=== PATIENT | female | born 1955 | race Caucasian/White ===

== ENCOUNTER → 2016-12-30 | Outpatient (CLI) | payer BC ==
--- NOTE | 2016-12-30 17:28 | REP ---
LEFT HIP, TWO VIEWS: HISTORY: Pain. There is no acute fracture or dislocation. The joint space is normal in appearance. IMPRESSION: There is no acute fracture or dislocation. Unreviewed
== END ==
LOC: M RAD 15:32
PROVIDERS: ATTEND Nurse Practitioner Family
DX: M25.552 Pain in left hip (principal)

== ENCOUNTER → 2017-04-05 | Outpatient (REF) | payer BC | LOC: M LAB REF 13:22 | PROVIDERS: ATTEND Surgery | DX: D48.5 Neoplasm of uncertain behavior of skin (principal) ==

== ENCOUNTER → 2017-06-26 | Outpatient (REF) | payer BC ==
[2017-06-26 12:38] LABS: ALBUMIN 3.5 GM/DL (3.2-5.2); ALBUMIN/GLOBULIN RATIO 1.06 (1.00-1.93); ALKALINE PHOSPHATASE 64 U/L (45-117); ALT/SGPT 18 U/L (12-78); ANION GAP 8 MEQ/L (8-16); AST/SGOT 17 U/L (7-37); BILIRUBIN,TOTAL 0.6 MG/DL (0.2-1.0); BLOOD UREA NITROGEN 14 MG/DL (7-18); CALCIUM LEVEL 8.4 MG/DL (8.5-10.1); CARBON DIOXIDE LEVEL 28 MEQ/L (21-32); CHLORIDE LEVEL 107 MEQ/L (98-107); CREATININE FOR GFR 0.71 MG/DL (0.55-1.02); GLOMERULAR FILTRATION RATE > 60.0 (>51); GLUCOSE, FASTING 93 MG/DL (70-105); POTASSIUM SERUM 4.4 MEQ/L (3.5-5.1); SODIUM LEVEL 143 MEQ/L (136-145); TOTAL PROTEIN 6.8 GM/DL (6.4-8.2)
== END ==
LOC: M SFHCPLAZ 09:19
PROVIDERS: ATTEND Internal Medicine
DX: Z00.00 Encounter for general adult medical examination without abnormal findings (principal)

== ENCOUNTER → 2017-06-28 | Outpatient (CLI) | payer BC ==
--- NOTE | 2017-06-28 15:10 | REP ---
PELVIS ULTRASOUND: Real-time sonographic evaluation of the pelvis performed utilizing transabdominal and endovaginal technique. Bladder measures 11.7 x 7.6 x 9.4 cm. Uterus measures 4.4 x 2.7 x 3.2 cm. Endometrial thickness is normal at 3 mm. There is no endometrial fluid collection. Tiny echogenic focus adjacent to the endometrial stripe in the region of the fundus may represent a small calcification. This measures 2 mm in diameter. Ovaries appear normal in size and echotexture, right ovary measuring 2.3 x 1.1 x 1.7 cm and left ovary 2.3 x 1.5 x 2.0 cm. IMPRESSION: Essentially negative pelvic ultrasound. Signed by Tavon Rivas MD 06/29/2017 09:15 A
== END ==
LOC: M RAD 12:47
PROVIDERS: ATTEND Advanced Practice Midwife
DX: R10.9 Unspecified abdominal pain (principal)

== ENCOUNTER → 2017-07-06 | Outpatient (CLI) | payer BC ==
--- NOTE | 2017-07-06 10:53 | REP ---
Right upper quadrant sonography: History: Diarrhea. Findings: Scanning through right upper quadrant of the abdomen demonstrates a normal sized thin-walled gallbladder with multiple non-shadowing 2-3 mm polyps near the neck of the gallbladder. No pericholecystic fluid is seen. No gallstone or sludge seen. Common bile duct is normal measuring 0.2 cm in greatest diameter. No focal liver lesion is seen. Pancreas is unremarkable. There is no evidence of ascites. The right kidney measures 9.7 x 5.1 x 3.1 cm. No significant right renal abnormality. Impression: Tiny gallbladder wall polyps. Otherwise negative right upper quadrant sonography. Signed by Perico Davis MD 07/06/2017 03:55 P
== END ==
LOC: M RAD 07:45
PROVIDERS: ATTEND Internal Medicine
DX: R19.7 Diarrhea, unspecified (principal); K82.4 Cholesterolosis of gallbladder

== ENCOUNTER → 2018-06-27 | Outpatient (REF) | payer BC ==
[2018-06-27 12:02] LABS: HEMATOCRIT 40.1 % (36.0-47.0); MEAN CORPUSCULAR HEMOGLOBIN 31.7 pg (27.0-33.0); MEAN CORPUSCULAR HGB CONC 32.4 g/dl (32.0-36.5); MEAN CORPUSCULAR VOLUME 97.8 fl (80.0-96.0); PLATELET COUNT, AUTOMATED 367 10^3/uL (150-450); RED CELL DISTRIBUTION WIDTH 12.6 % (11.5-14.5); WHITE BLOOD COUNT 5.9 10^3/uL (4.0-10.0)
[2018-06-27 13:08] LABS: ALBUMIN 3.2 GM/DL (3.2-5.2); ALBUMIN/GLOBULIN RATIO 0.97 (1.00-1.93); ALKALINE PHOSPHATASE 68 U/L (45-117); ALT/SGPT 16 U/L (12-78); ANION GAP 8 MEQ/L (8-16); AST/SGOT 16 U/L (7-37); BILIRUBIN,TOTAL 0.7 MG/DL (0.2-1.0); BLOOD UREA NITROGEN 14 MG/DL (7-18); CALCIUM LEVEL 8.1 MG/DL (8.8-10.2); CARBON DIOXIDE LEVEL 27 MEQ/L (21-32); CHLORIDE LEVEL 107 MEQ/L (98-107); CHOLESTEROL LEVEL 177 MG/DL (<200); CHOLESTEROL RISK RATIO 2.458 (<5); CREATININE FOR GFR 0.75 MG/DL (0.55-1.30); GLOMERULAR FILTRATION RATE > 60.0 (>45); GLUCOSE, FASTING 91 MG/DL (70-100); HDL CHOLESTEROL 72 MG/DL (>40); LDL CHOLESTEROL 92 MG/DL (<100); NON-HDL-C 105 MG/DL; POTASSIUM SERUM 3.9 MEQ/L (3.5-5.1); SODIUM LEVEL 142 MEQ/L (136-145); TOTAL PROTEIN 6.5 GM/DL (6.4-8.2); TRIGLYCERIDES LEVEL 63 MG/DL (<150)
== END ==
LOC: M SFHCPLAZ 07:55
DX: Z00.00 Encounter for general adult medical examination without abnormal findings (principal); R19.7 Diarrhea, unspecified; E03.9 Hypothyroidism, unspecified
CPT/HCPCS: 84443

== ENCOUNTER → 2018-07-04 | Outpatient (REF) | payer BC | LOC: M SFHCPLAZ 09:07 | PROVIDERS: ATTEND Internal Medicine | DX: R51 Headache (principal) ==

== ENCOUNTER → 2018-10-08 | Outpatient (REF) | payer BC ==
[2018-10-08 18:26] LABS: APPEARANCE, URINE HAZY (CLEAR); BACTERIA, URINE AUTO 1+ (NEGATIVE); BILIRUBIN, URINE AUTO NEGATIVE (NEGATIVE); BLOOD, URINE BLOOD 1+ (NEGATIVE); COLOR, URINE YELLOW (YELLOW); GLUCOSE, URINE (UA) AUTO NEGATIVE (NEGATIVE); KETONE, URINE AUTO NEGATIVE (NEGATIVE); LEUKOCYTE ESTERASE, URINE AUTO 3+ (NEGATIVE); MUCUS, URINE SMALL (NEGATIVE); NITRITE, URINE AUTO NEGATIVE (NEGATIVE); PROTEIN, URINE AUTO NEGATIVE (NEGATIVE); RBC, URINE AUTO 11 /HPF (0-3); SPECIFIC GRAVITY URINE AUTO 1.018 (1.002-1.035); SQUAMOUS EPITHELIAL CELL UR AU 0 /HPF (0-6); UROBILINOGEN, URINE AUTO 0.2 mg/dL (0.0-2.0); WBC, URINE AUTO 141 /HPF (0-3)
== END ==
LOC: M LAB REF 16:51
PROVIDERS: ATTEND Physician Assistant Medical
DX: N39.0 Urinary tract infection, site not specified (principal)

== ENCOUNTER → 2018-12-17 | Outpatient (REF) | payer BC ==
[2018-12-17 20:21] LABS: C REACTIVE PROTEIN QUANTITATIV < 0.30 MG/DL (0.00-0.30); RHEUMATOID FACTOR QUANT < 10.0 IU/ML (<15.0); URIC ACID 2.8 MG/DL (2.6-6.0)
== END ==
LOC: M SFHCPLAZ 16:13
PROVIDERS: ATTEND Nurse Practitioner Adult Health
DX: M25.40 Effusion, unspecified joint (principal)

== ENCOUNTER → 2018-12-18 | Outpatient (CLI) | payer BC ==
--- NOTE | 2018-12-19 01:24 | REP ---
Clinical: Wrist pain. Technique: AP, lateral views of the right and left wrist. Findings: No acute fracture or dislocation. No overt osteoarthritic degenerative changes are appreciated. Carpal bones as well as the visualized proximal metacarpal bones and distal radius and ulna are normal and age-appropriate in appearance. No acute fracture dislocation. Impression: Relatively symmetric age-appropriate examination. Electronically Signed by Samuel Hirsch MD 12/19/2018 01:16 A
--- NOTE | 2018-12-19 01:42 | REP ---
Clinical: Right hand pain. Technique: AP, lateral views of the right and left hand. Findings: Right hand demonstrates early advanced osteoarthritic degenerative changes primarily involving the interphalangeal joints. Findings include periarticular sclerosis, joint space narrowing, and osteophytosis. Findings most pronounced at the distal interphalangeal joints as well as the fifth proximal interphalangeal joint. Left hand demonstrates moderate osteoarthritic degenerative changes primarily involving the interphalangeal joints. Findings include periarticular sclerosis, joint space narrowing, and scattered osteophytosis. Findings most pronounced at third proximal interphalangeal joint as well as the second distal and proximal interphalangeal joints. Impression: Moderate/early advanced osteoarthritic degenerative changes. Electronically Signed by Samuel Hirsch MD 12/19/2018 01:34 A
== END ==
LOC: M RAD 13:59
PROVIDERS: ATTEND Nurse Practitioner Adult Health
DX: M79.641 Pain in right hand (principal); M19.041 Primary osteoarthritis, right hand; M19.042 Primary osteoarthritis, left hand

== ENCOUNTER → 2019-06-28 | Outpatient (REF) | payer BC ==
[2019-06-28 10:53] LABS: HEMATOCRIT 42.4 % (36.0-47.0); HEMOGLOBIN 13.1 g/dl (12.0-15.5); MEAN CORPUSCULAR HEMOGLOBIN 30.8 pg (27.0-33.0); MEAN CORPUSCULAR HGB CONC 30.9 g/dl (32.0-36.5); MEAN CORPUSCULAR VOLUME 99.8 fl (80.0-96.0); PLATELET COUNT, AUTOMATED 413 10^3/uL (150-450); RED BLOOD COUNT 4.25 10^6/uL (4.00-5.40); WHITE BLOOD COUNT 6.2 10^3/uL (4.0-10.0)
[2019-06-28 11:10] LABS: ALBUMIN 3.5 GM/DL (3.2-5.2); ALT/SGPT 15 U/L (12-78); BILIRUBIN,TOTAL 0.4 MG/DL (0.2-1.0); BLOOD UREA NITROGEN 13 MG/DL (7-18); CALCIUM LEVEL 8.6 MG/DL (8.8-10.2); CARBON DIOXIDE LEVEL 29 MEQ/L (21-32); CHLORIDE LEVEL 107 MEQ/L (98-107); CHOLESTEROL LEVEL 191 MG/DL (<200); CHOLESTEROL RISK RATIO 2.581 (<5); GLOMERULAR FILTRATION RATE > 60.0 (>45); GLUCOSE, FASTING 89 MG/DL (70-100); HDL CHOLESTEROL 74 MG/DL (>40); LDL CHOLESTEROL 97 MG/DL (<100); NON-HDL-C 117 MG/DL; POTASSIUM SERUM 4.1 MEQ/L (3.5-5.1); SODIUM LEVEL 144 MEQ/L (136-145); TOTAL PROTEIN 6.9 GM/DL (6.4-8.2); TRIGLYCERIDES LEVEL 100 MG/DL (<150)
== END ==
LOC: M SFHCPLAZ 08:15
PROVIDERS: ATTEND Internal Medicine
DX: Z00.00 Encounter for general adult medical examination without abnormal findings (principal); E03.9 Hypothyroidism, unspecified

== ENCOUNTER → 2019-07-05 | Outpatient (REF) | payer BC | LOC: M SFHCPLAZ 10:06 | PROVIDERS: ATTEND Internal Medicine | DX: M19.049 Primary osteoarthritis, unspecified hand (principal) ==

== ENCOUNTER 2019-11-15 10:00 | Emergency (ER) | payer BC ==
[~2019-11-15] VITALS: Ht 160 cm; Wt 69.4 kg
[2019-11-15] MEDS ORDERED: MICR1TAB5 PO (10:34)
[2019-11-15] MEDS ORDERED: LEVO75TA4 PO (10:34)
[2019-11-15 10:42] LABS: BASO % 0.5 % (0.0-1.0); EOS # 0.2 10^3/uL (0.0-0.5); EOS % 3.8 % (0.0-3.0); HEMOGLOBIN 13.5 g/dl (12.0-15.5); LYMPH # 1.6 10^3/uL (1.5-5.0); LYMPH % 28.2 % (24.0-44.0); MEAN CORPUSCULAR HGB CONC 32.1 g/dl (32.0-36.5); MEAN CORPUSCULAR VOLUME 96.6 fl (80.0-96.0); MONO # 0.4 10^3/uL (0.0-0.8); MONO % 7.6 % (0.0-5.0); NEUTROPHILS # 3.3 10^3/uL (1.5-8.5); NEUTROPHILS % 59.5 % (36.0-66.0); PLATELET COUNT, AUTOMATED 380 10^3/uL (150-450); RED BLOOD COUNT 4.35 10^6/uL (4.00-5.40); WHITE BLOOD COUNT 5.5 10^3/uL (4.0-10.0)
[2019-11-15 10:53] LABS: INR 1.01; PARTIAL THROMBOPLASTIN TIME 27.5 SECONDS (25.0-38.4)
[2019-11-15 11:10] LABS: ALBUMIN 3.6 GM/DL (3.2-5.2); ALT/SGPT 18 U/L (12-78); BILIRUBIN,DIRECT 0.1 MG/DL (0.0-0.2); BILIRUBIN,TOTAL 0.6 MG/DL (0.2-1.0); BLOOD UREA NITROGEN 11 MG/DL (7-18); CALCIUM LEVEL 8.8 MG/DL (8.8-10.2); CARBON DIOXIDE LEVEL 25 MEQ/L (21-32); CHLORIDE LEVEL 108 MEQ/L (98-107); CK-MB VALUE MASS < 1.0 NG/ML (<3.6); CPK CREATINE PHOSPHOKINASE 55 U/L (26-192); CREATININE FOR GFR 0.67 MG/DL (0.55-1.30); FREE T4 1.27 NG/DL (0.76-1.46); GLOMERULAR FILTRATION RATE > 60.0 (>45); GLUCOSE, FASTING 104 MG/DL (70-100); LIPASE 79 U/L (73-393); MAGNESIUM LEVEL 2.2 MG/DL (1.8-2.4); MB/CK RELATIVE INDEX 1.82 (< OR =4); POTASSIUM SERUM 3.7 MEQ/L (3.5-5.1); SODIUM LEVEL 141 MEQ/L (136-145); TOTAL PROTEIN 7.1 GM/DL (6.4-8.2); TROPONIN I < 0.02 NG/ML (< 0.10)
[2019-11-15 11:11] LABS: D-DIMER QUANT 483.85 ng/ml (<500)
--- NOTE | 2019-11-15 11:20 | REP ---
CHEST, SINGLE VIEW: There is no evidence of acute infiltrate. No pleural effusion is seen. The heart is normal in size. The mediastinal silhouette is unremarkable. The visualized osseous structures are intact. IMPRESSION: No acute pulmonary disease. Electronically Signed by Tavon Rivas MD 11/15/2019 11:25 A
[2019-11-15] MEDS ORDERED: [UNRECOGNIZED DRUG - OTHER] (11:28)
[2019-11-15] MEDS ORDERED: holter monitor (11:28)
[2019-11-15 11:30] VITALS: BP 118/57
--- NOTE | 2019-11-15 22:51 | ECGEPIP ---
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
== END 2019-11-15 11:55 | disposition home or self-care (01) ==
LOC: M ED 10:00
DX: R00.2 Palpitations (principal); E07.9 Disorder of thyroid, unspecified; R09.89 Other specified symptoms and signs involving the circulatory and respiratory systems; Z82.49 Family history of ischemic heart disease and other diseases of the circulatory system; Z86.79 Personal history of other diseases of the circulatory system; Z79.899 Other long term (current) drug therapy

== ENCOUNTER → 2019-11-15 | Outpatient (CLI) | payer BC ==
[~2019-11-15] MED LIST: LEVO75TA4 PO; MICR1TAB5 PO; [UNRECOGNIZED DRUG - OTHER]; holter monitor
--- NOTE | 2019-11-17 15:11 | HOLTMON ---
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 There were very occasional PVC's and rare PAC's but no significant runs. No significant ST events or pauses. No atrial fibrillation was seen. Diary entries were associated with sinus rhythm, minor sinus tachycardia, and once with a PVC. Electronically Signed on 11-17-2019 15:11:44 EDT by Casey Duvall
== END ==
LOC: M EKG 11:53
PROVIDERS: ATTEND Emergency Medicine
DX: R00.2 Palpitations (principal)

== ENCOUNTER → 2019-12-25 | Outpatient (CLI) | payer BC | LOC: M PLALAB 12:17 | PROVIDERS: ATTEND Internal Medicine | DX: K52.9 Noninfective gastroenteritis and colitis, unspecified (principal) ==

== ENCOUNTER → 2020-03-31 | Outpatient (CLI) | payer BC | LOC: M PLALAB 13:33 | PROVIDERS: ATTEND Internal Medicine | DX: G50.1 Atypical facial pain (principal) ==

== ENCOUNTER → 2020-08-28 | Outpatient (REF) | payer BC ==
[2020-08-28 13:55] LABS: HEMATOCRIT 39.9 % (36.0-47.0); HEMOGLOBIN 12.5 g/dl (12.0-15.5); MEAN CORPUSCULAR HEMOGLOBIN 30.5 pg (27.0-33.0); MEAN CORPUSCULAR HGB CONC 31.3 g/dl (32.0-36.5); MEAN CORPUSCULAR VOLUME 97.3 fl (80.0-96.0); PLATELET COUNT, AUTOMATED 363 10^3/uL (150-450); WHITE BLOOD COUNT 4.8 10^3/uL (4.0-10.0)
[2020-08-28 14:46] LABS: ALBUMIN 3.6 GM/DL (3.2-5.2); ALT/SGPT 15 U/L (12-78); BILIRUBIN,TOTAL 0.3 MG/DL (0.2-1.0); BLOOD UREA NITROGEN 15 MG/DL (7-18); CALCIUM LEVEL 8.8 MG/DL (8.8-10.2); CARBON DIOXIDE LEVEL 28 MEQ/L (21-32); CHLORIDE LEVEL 106 MEQ/L (98-107); CHOLESTEROL LEVEL 161 MG/DL (<200); CHOLESTEROL RISK RATIO 3.156 (<5); CREATININE FOR GFR 0.69 MG/DL (0.55-1.30); GLOMERULAR FILTRATION RATE > 60.0 (>45); GLUCOSE, FASTING 88 MG/DL (70-100); HDL CHOLESTEROL 51 MG/DL (>40); LDL CHOLESTEROL 101 MG/DL (<100); NON-HDL-C 110 MG/DL; SODIUM LEVEL 141 MEQ/L (136-145); TOTAL PROTEIN 6.6 GM/DL (6.4-8.2); TRIGLYCERIDES LEVEL 44 MG/DL (<150)
== END ==
LOC: M PLALAB 10:32
PROVIDERS: ATTEND Internal Medicine
DX: E03.9 Hypothyroidism, unspecified (principal); R19.7 Diarrhea, unspecified

== ENCOUNTER → 2020-10-04 | Outpatient (CLI) | payer BC ==
[~2020-10-04] MED LIST changes: +COLE625TAB PO; +GABA-282 PO; +METO25TA4 PO; +OMEP40CA97 PO
== END ==
LOC: M LABSMTC 09:08
PROVIDERS: ATTEND Anesthesiology
DX: Z20.828 Contact with and (suspected) exposure to other viral communicable diseases (principal); Z11.59 Encounter for screening for other viral diseases

== ENCOUNTER → 2020-10-07 | Outpatient (REF) | payer BC | LOC: M SFHCWAGY 13:29 | PROVIDERS: ATTEND Advanced Practice Midwife | DX: Z12.4 Encounter for screening for malignant neoplasm of cervix (principal) ==

== ENCOUNTER 2020-10-09 13:22 | Day surgery (SDC) | payer BC ==
[~2020-10-09] VITALS: Ht 157.5 cm; Wt 66.7 kg
[~2020-10-09 13:22] MED LIST changes: +LIDOCAINE 2% 100MG/5ML SDV (FOR ANES.) As Ordered ONE; +NS 1,000 ML IV ONE; +propofoL 200 MG/20 ML VIAL As Ordered ONE
[2020-10-09] MEDS ORDERED: fentaNYL 100 MCG/2 ML INJECTION (J3010) As Ordered ONE (14:31)
--- NOTE | 2020-10-09 15:13 | ROOR ---
Patient Name: Jennifer Higuera Procedure Date: 10/09/2020 2:59 PM Date of : 1955 Age: 65 Room: [facility] Gender: Female Note Status: Finalized Procedure: Upper GI endoscopy Indications: Chronic cough Providers: Shady IQBAL MD Referring MD: Casey Duvall MD Requesting Provider: Medicines: Monitored Anesthesia Care Complications: No immediate complications. Procedure: Pre-Anesthesia Assessment: - The heart rate, respiratory rate, oxygen saturations, blood pressure, adequacy of pulmonary ventilation, and response to care were monitored throughout the procedure. The Endoscope was introduced through the mouth, and advanced to the second part of duodenum. The upper GI endoscopy was accomplished without difficulty. The patient tolerated the procedure well. Findings: The esophagus was normal. The stomach was normal. The examined duodenum was normal. Impression: - Normal esophagus. - Normal stomach. - Normal examined duodenum. - No specimens collected. Recommendation: - Follow an antireflux regimen. - Continue present medications. Procedure Code(s): --- Professional --- 19858, Esophagogastroduodenoscopy, flexible, transoral; diagnostic, including collection of specimen(s) by brushing or washing, when performed (separate procedure) Diagnosis Code(s): --- Professional --- R05, Cough CPT copyright 2019 [employer]. All rights reserved. The codes documented in this report are preliminary and upon public health engineer review may be revised to meet current compliance requirements. Shady Iqbal MD Shady IQBAL MD 10/09/2020 3:12:33 PM Electronically signed by Shady IQBAL MD Number of Addenda: 0 Note Initiated On: 10/09/2020 2:59 PM Estimated Blood Loss: Estimated blood loss: none.
[2020-10-09 15:40] VITALS: BP 121/59
== END 2020-10-09 15:55 | disposition home or self-care (01) ==
LOC: M OPP 13:22
PROVIDERS: ATTEND Internal Medicine Gastroenterology
DX: R05 Cough (principal); E03.9 Hypothyroidism, unspecified; K21.9 Gastro-esophageal reflux disease without esophagitis; I48.91 Unspecified atrial fibrillation; Z79.899 Other long term (current) drug therapy
CPT/HCPCS: 43235; J3010

== ENCOUNTER → 2021-09-08 | Outpatient (CLI) | payer BC ==
[~2021-09-08] MED LIST changes: -LIDOCAINE 2% 100MG/5ML SDV (FOR ANES.) As Ordered ONE; -NS 1,000 ML IV ONE; +OMEP40CA4 PO; -OMEP40CA97 PO; -propofoL 200 MG/20 ML VIAL As Ordered ONE
[2021-09-08 18:05] LABS: HEMATOCRIT 40.4 % (36.0-47.0); HEMOGLOBIN 12.9 g/dl (12.0-15.5); MEAN CORPUSCULAR HEMOGLOBIN 30.6 pg (27.0-33.0); MEAN CORPUSCULAR HGB CONC 31.9 g/dl (32.0-36.5); PLATELET COUNT, AUTOMATED 391 10^3/uL (150-450); RED BLOOD COUNT 4.21 10^6/uL (4.00-5.40); WHITE BLOOD COUNT 6.6 10^3/uL (4.0-10.0)
[2021-09-08 18:51] LABS: ERYTHROCYTE SEDIMENTATION RATE 10 mm/hr (0-30)
[2021-09-08 20:14] LABS: ALBUMIN 3.8 GM/DL (3.2-5.2); ALT/SGPT 17 U/L (12-78); BILIRUBIN,TOTAL 0.6 MG/DL (0.2-1.0); BLOOD UREA NITROGEN 12 MG/DL (7-18); CARBON DIOXIDE LEVEL 30 MEQ/L (21-32); CHLORIDE LEVEL 105 MEQ/L (98-107); CHOLESTEROL LEVEL 183 MG/DL (<200); CHOLESTEROL RISK RATIO 2.376 (<5); CREATININE FOR GFR 0.62 MG/DL (0.55-1.30); GLOMERULAR FILTRATION RATE > 60.0 (>45); GLUCOSE, FASTING 79 MG/DL (70-100); HDL CHOLESTEROL 77 MG/DL (>40); HEPATITIS C VIRUS ABY INDEX 0.1 INDEX (<0.8); LDL CHOLESTEROL 95 MG/DL (<100); NON-HDL-C 106 MG/DL; POTASSIUM SERUM 3.9 MEQ/L (3.5-5.1); SODIUM LEVEL 141 MEQ/L (136-145); TOTAL PROTEIN 7.1 GM/DL (6.4-8.2); TRIGLYCERIDES LEVEL 57 MG/DL (<150)
== END ==
LOC: M PLALAB 15:17
PROVIDERS: ATTEND Internal Medicine
DX: Z00.00 Encounter for general adult medical examination without abnormal findings (principal); M15.4 Erosive (osteo)arthritis; E03.9 Hypothyroidism, unspecified; Z11.59 Encounter for screening for other viral diseases

== ENCOUNTER → 2022-10-21 | Outpatient (CLI) | payer MEDICARE ==
[~2022-10-21] MED LIST changes: +COLE625T17 PO; -COLE625TAB PO
[2022-10-21 11:45] LABS: BASO % 0.7 % (0.0-1.0); EOS # 0.2 10^3/uL (0.0-0.5); EOS % 4.1 % (0.0-3.0); HEMATOCRIT 40.4 % (36.0-47.0); HEMOGLOBIN 13.1 g/dl (12.0-15.5); LYMPH # 2.1 10^3/uL (1.5-5.0); MEAN CORPUSCULAR HGB CONC 32.4 g/dl (32.0-36.5); MEAN CORPUSCULAR VOLUME 95.5 fl (80.0-96.0); MONO # 0.4 10^3/uL (0.0-0.8); MONO % 7.4 % (2.0-8.0); NEUTROPHILS % 51.6 % (36.0-66.0); PLATELET COUNT, AUTOMATED 382 10^3/uL (150-450); RED BLOOD COUNT 4.23 10^6/uL (4.00-5.40); WHITE BLOOD COUNT 5.8 10^3/uL (4.0-10.0)
[2022-10-21 12:00] LABS: HEMOGLOBIN A1c 5.2 % (4.0-6.0)
[2022-10-21 12:13] LABS: ALBUMIN 3.6 G/DL (3.2-5.2); ALKALINE PHOSPHATASE 65 U/L (46-116); ALT/SGPT 14 U/L (7.0-40); AST/SGOT 15 U/L (<34); BILIRUBIN,TOTAL 0.7 MG/DL (0.3-1.2); BLOOD UREA NITROGEN 20 MG/DL (9-23); CALCIUM LEVEL 8.6 MG/DL (8.3-10.6); CARBON DIOXIDE LEVEL 28 MMOL/L (20-31); CHLORIDE LEVEL 105 MMOL/L (98-107); CHOLESTEROL LEVEL 171 MG/DL (<200); CHOLESTEROL RISK RATIO 2.74 (<5); CREATININE FOR GFR 0.67 MG/DL (0.55-1.30); GLOMERULAR FILTRATION RATE > 60.0 (>45); GLUCOSE, FASTING 85 MG/DL (74-106); HDL CHOLESTEROL 62.2 MG/DL (>40); LDL CHOLESTEROL 97.8 MG/DL (<100); NON-HDL-C 108.8 MG/DL; SODIUM LEVEL 138 MMOL/L (136-145); TOTAL PROTEIN 6.5 G/DL (5.7-8.2); TRIGLYCERIDES LEVEL 55 MG/DL (<150)
[2022-10-21 12:15] LABS: THYROID STIMULATING HORMONE 0.737 uIU/ML (0.55-4.78)
== END ==
LOC: M PLALAB 08:10
PROVIDERS: ATTEND Physician Assistant
DX: E03.9 Hypothyroidism, unspecified (principal)

== ENCOUNTER → 2022-11-02 | Outpatient (CLI) | payer MEDICARE | LOC: M RAD 13:56 | PROVIDERS: ATTEND Physician Assistant Medical | DX: J32.9 Chronic sinusitis, unspecified (principal) ==

== ENCOUNTER → 2023-03-29 | Outpatient (CLI) | payer MEDICARE | LOC: M WHC 09:59 | PROVIDERS: ATTEND Physician Assistant | DX: M15.4 Erosive (osteo)arthritis (principal); Z13.820 Encounter for screening for osteoporosis; M85.89 Other specified disorders of bone density and structure, multiple sites ==

== ENCOUNTER → 2023-08-29 | Outpatient (CLI) | payer MEDICARE ==
[2023-08-29 16:00] LABS: C REACTIVE PROTEIN QUANTITATIV < 0.40 MG/DL (<1.0); LIPASE 27 U/L (12-53)
[2023-08-29 16:02] LABS: CHOLESTEROL LEVEL 178 MG/DL (<200); CHOLESTEROL RISK RATIO 2.41 (<5); HDL CHOLESTEROL 73.7 MG/DL (>40); LDL CHOLESTEROL 86.7 MG/DL (<100); NON-HDL-C 104.3 MG/DL; TRIGLYCERIDES LEVEL 88 MG/DL (<150)
[2023-08-29 16:06] LABS: TOTAL 25(OH) VITAMIN D 33.5 NG/ML (20.0-100.0)
[2023-08-29 16:07] LABS: FREE T4 1.28 NG/DL (0.89-1.76); THYROID STIMULATING HORMONE 2.329 uIU/ML (0.55-4.78)
[2023-08-29 16:33] LABS: HEMOGLOBIN A1c 5.1 % (4.0-6.0)
== END ==
LOC: M PLALAB 12:06
PROVIDERS: ATTEND Physician Assistant
DX: Z13.1 Encounter for screening for diabetes mellitus (principal); G44.85 Primary stabbing headache; R11.0 Nausea; E03.9 Hypothyroidism, unspecified; Z13.220 Encounter for screening for lipoid disorders; M85.89 Other specified disorders of bone density and structure, multiple sites; Z79.899 Other long term (current) drug therapy

== ENCOUNTER → 2023-09-28 | Outpatient (CLI) | payer MEDICARE ==
[~2023-09-28] MED LIST changes: +PROHANCE 279.3MG/ML 15ML VIAL ONE
== END ==
LOC: M PLAIMG 09:38
PROVIDERS: ATTEND Physician Assistant
DX: G44.85 Primary stabbing headache (principal)
CPT/HCPCS: 70553; A9576

== ENCOUNTER 2023-10-26 08:30 | Day surgery (SDC) | payer MEDICARE ==
[~2023-10-26] VITALS: Ht 160 cm; Wt 68.2 kg
[~2023-10-26 08:30] MED LIST changes: +MELO7.5T35 PO; +METO1TAB32 PO; -PROHANCE 279.3MG/ML 15ML VIAL ONE
[2023-10-26] MEDS: NS 1,000 ML IV ONE (09:05)
[2023-10-26] MEDS ORDERED: LIDOCAINE 2% 100MG/5ML SDV (FOR ANES.) As Ordered ONE (09:13)
[2023-10-26] MEDS ORDERED: fentaNYL 100 MCG/2 ML INJECTION As Ordered ONE (09:14)
[2023-10-26] MEDS ORDERED: propofoL 500 MG/50 ML VIAL As Ordered ONE (09:15)
[2023-10-26] MEDS ORDERED: ONDANSETRON 4MG 2ML VIAL As Ordered ONE (09:50)
[2023-10-26 10:43] VITALS: BP 123/59; TEMP 97; O2SAT 96
== END 2023-10-26 10:25 | disposition home or self-care (01) ==
LOC: M OPP 08:30
PROVIDERS: ATTEND Surgery
DX: K62.5 Hemorrhage of anus and rectum (principal); K57.30 Diverticulosis of large intestine without perforation or abscess without bleeding; K21.00 Gastro-esophageal reflux disease with esophagitis, without bleeding; R13.10 Dysphagia, unspecified; Z87.891 Personal history of nicotine dependence; Z79.02 Long term (current) use of antithrombotics/antiplatelets; Z79.1 Long term (current) use of non-steroidal anti-inflammatories (NSAID); Z79.52 Long term (current) use of systemic steroids; Z79.818 Long term (current) use of other agents affecting estrogen receptors and estrogen levels
CPT/HCPCS: 43239; 45378; 88305; J2405; J3010

== ENCOUNTER → 2023-11-03 | Outpatient (CLI) | payer MEDICARE | LOC: M RAD 13:33 | PROVIDERS: ATTEND Physician Assistant | DX: M19.041 Primary osteoarthritis, right hand (principal); M19.042 Primary osteoarthritis, left hand; M85.841 Other specified disorders of bone density and structure, right hand; M85.842 Other specified disorders of bone density and structure, left hand ==

== ENCOUNTER → 2024-05-27 | Outpatient (REF) | payer MEDICARE ==
[~2024-05-27] MED LIST changes: +GABA-1172 PO; -GABA-282 PO
== END ==
LOC: M LAB REF 15:53
PROVIDERS: ATTEND Surgery
DX: L57.8 Other skin changes due to chronic exposure to nonionizing radiation (principal)

== ENCOUNTER → 2025-04-08 | Outpatient (CLI) | payer MEDICARE ==
[2025-04-08 14:13] LABS: PLATELET COUNT, AUTOMATED 374 10^3/uL (150-450)
[2025-04-08 14:44] LABS: ALT/SGPT 11.0 U/L (7.0-40); AST/SGOT 16.0 U/L (<34); CALCIUM LEVEL 9.0 MG/DL (8.3-10.6); CARBON DIOXIDE LEVEL 29.0 MMOL/L (20-31); CHLORIDE LEVEL 105.0 MMOL/L (98-107); CREATININE FOR GFR 0.84 MG/DL (0.55-1.30); GLOMERULAR FILTRATION RATE 76.1 (>45); POTASSIUM SERUM 3.6 MMOL/L (3.5-5.1); SODIUM LEVEL 142.0 MMOL/L (136-145)
[2025-04-08 14:47] LABS: FREE T4 1.62 NG/DL (0.89-1.76)
== END ==
LOC: M PLALAB 11:06
DX: R19.7 Diarrhea, unspecified (principal)

== ENCOUNTER → 2025-04-29 | Outpatient (CLI) | payer MEDICARE | LOC: M WHC 07:50 | PROVIDERS: ATTEND Student in an Organized Health Care Education/Training Program | DX: Z00.00 Encounter for general adult medical examination without abnormal findings (principal); Z87.39 Personal history of other diseases of the musculoskeletal system and connective tissue; M81.0 Age-related osteoporosis without current pathological fracture ==

== ENCOUNTER → 2025-04-30 | Outpatient (CLI) | payer MEDICARE ==
[2025-04-30 16:14] LABS: C REACTIVE PROTEIN QUANTITATIV < 0.50 MG/DL (<1.0); RHEUMATOID FACTOR QUANT < 3.5 IU/ML (<14)
[2025-04-30 16:16] LABS: TOTAL 25(OH) VITAMIN D 47.6 NG/ML (20.0-100.0)
[2025-05-06 15:15] LABS: HLA-B27 Negative (Negative)
== END ==
LOC: M PLALAB 11:41
PROVIDERS: ATTEND Student in an Organized Health Care Education/Training Program
DX: R51.9 Headache, unspecified (principal); M15.4 Erosive (osteo)arthritis; M85.80 Other specified disorders of bone density and structure, unspecified site